=== PATIENT | male | born 1980 | race Caucasian/White ===

== ENCOUNTER 2018-06-29 15:29 | Emergency (ER) | payer OTHER ==
--- NOTE | 2018-06-29 16:46 | RAD REPORT ---
EXAM DESCRIPTION: CT - Head C Spine Cap Helen Taylor - 06/29/2018 4:28 pm CLINICAL HISTORY: Trauma, head and neck injury. Chest, abdomen and pelvis pain. PAIN COMPARISON: No comparisons TECHNIQUE: CT head without contrast. CT cervical spine without contrast with coronal and sagittal reformatted images. CT chest, abdomen and pelvis with IV contrast (approximately 100 mL nonionic IV contrast) with gibson l and sagittal reformatted images of the spine. All CT scans are performed using dose optimization technique as appropriate and may include automated exposure control or mA/KV adjustment according to patient size. FINDINGS: CT HEAD WITHOUT CONTRAST: No intracranial hemorrhage, hydrocephalus or extra-axial fluid collection. No areas of brain edema o r midline shift. The paranasal sinuses and mastoids are clear. The calvarium is intact. CT CERVICAL SPINE WITHOUT CONTRAST: No fracture or subluxation. The prevertebral soft tissues are normal in thickness. CT CHEST, ABDOMEN, PELVIS WITH CONTRAST: The lungs are clear.No pneumothorax or pericardial/pleural fluid. No evidence of intra-abdominal visceral injury, free fluid or free air. No concerning pelvic findings. No fractures. IMPRESSION: Negative for acute traumatic findings.
[2018-06-29 16:54] LABS: Absolute Lymphocytes (CBC) 1.8 K/uL (0.7-4.9); Absolute Monocytes 0.5 K/uL (0.1-1.3); Absolute Neutrophil 7.1 K/uL (1.8-8.0); Basophils % 0.5 % (0-1.3); Eosinophils % 2.1 % (0-4.4); Hematocrit 45.9 % (39.6-49.0); Lymphocytes % 18.3 % (15.3-44.8); MPV 9.4 fL (7.6-11.3); Monocytes % 5.4 % (3.3-12.3); RBC Red Blood Cell Count 5.84 M/uL (4.33-5.43)
[2018-06-29] MEDS ORDERED: METHOCARBAMOL 1,000 MG in NA CHLORIDE 0.9% 100 ML IV ONE (17:00)
[2018-06-29 17:06] LABS: Potassium 4.1 mmol/L (3.5-5.1)
--- NOTE | 2018-06-29 18:21 | EDPHYS ---
Physician Documentation [facility] Name: Vahid Ren Age: 37 yrs Sex: Male : 1980 Arrival Date: 06/29/2018 Time: 15:31 Bed 6 Private MD: ED Physician Edil Tejada HPI: 06/29 17:24 This 37 yrs old Male presents to ER via Wheelchair with complaints of Back kdr Injury - Inquicker. 17:24 The patient presents with pain that is acute, and decreased range of motion, and an kdr injury, and tenderness. The symptoms are located in the thoracic area, Broad chest pain. Onset: The symptoms/episode began/occurred suddenly, just prior to arrival, today, at 13:00. The pain does not radiate. Associated signs and symptoms: Pertinent positives: chest pain, nausea, weakness, SOB. The problem was sustained The patient became wedged between a forklift and a truck tailgate/fender. He stated that the taxi driver supervisor was attempting put some wooden pallets in the back of a truck when the patient was caught and he was jammed about three to four times. Once the taxi driver supervisor backed up, he fell to the ground but did not loose consciousness. He then had to take his kids home before he could come to the hospital. He states that while he was pinned, he couldn't breath and he felt like his spine was cracking. He still c/o generalized broad chest discomfort and difficult breathing. Historical: - Allergies: 16:05 No Known Allergies; ss - Home Meds: 16:05 None [Active]; ss - PMHx: 16:05 None; ss - PSHx: 16:05 None; ss - Immunization history: Last tetanus immunization: - up to date. - Social history:: Smoking status: Patient uses tobacco products, denies chronic smoking, but will smoke occasionally. - Ebola Screening: : Patient denies travel to an Ebola-affected area in the 21 days before illness onset. ROS: 17:29 Constitutional: Negative for fever, chills, and weight loss, Eyes: Negative for injury, kdr pain, redness, and discharge, ENT: Negative for injury, pain, and discharge, Neck: Negative for injury, pain, and swelling, Abdomen/GI: Negative for abdominal pain, nausea, vomiting, diarrhea, and constipation, Back: Negative for injury and pain, : Negative for injury, bleeding, discharge, and swelling, MS/Extremity: Negative for injury and deformity, Skin: Negative for injury, rash, and discoloration, Neuro: Negative for headache, weakness, numbness, tingling, and seizure activity. Psych: Negative for depression, anxiety, suicide ideation, homicidal ideation, and hallucinations, Allergy/Immunology: Negative for hives, rash, and allergies, Endocrine: Negative for neck swelling, polydipsia, polyuria, polyphagia, and marked weight changes, Hematologic/Lymphatic: Negative for swollen nodes, abnormal bleeding, and unusual bruising. 17:29 Cardiovascular: Positive for chest pain, with cough, with movement, of the chest, Negative for edema, orthopnea, palpitations, paroxysmal nocturnal dyspnea. 17:29 Respiratory: Positive for shortness of breath, Dyspnea. Exam: 17:29 Constitutional: This is a well developed, well nourished patient who is awake, alert, kdr and in no acute distress. Head/Face: Normocephalic, atraumatic. Eyes: Pupils equal round and reactive to light, extra-ocular motions intact. Lids and lashes normal. Conjunctiva and sclera are non-icteric and not injected. Cornea within normal limits. Periorbital areas with no swelling, redness, or edema. Neck: Trachea midline, no thyromegaly or masses palpated, and no cervical lymphadenopathy. Supple, full range of motion without nuchal rigidity, or vertebral point tenderness. No Meningismus. Cardiovascular: Regular rate and rhythm with a normal S1 and S2. No gallops, murmurs, or rubs. Normal PMI, no JVD. No pulse deficits. Abdomen/GI: Soft, non-tender, with normal bowel sounds. No distension or tympany. No guarding or rebound. No evidence of tenderness throughout. Back: No spinal tenderness. No costovertebral tenderness. Full range of motion. Skin: Warm, dry with normal turgor. Normal color with no rashes, no lesions, and no evidence of cellulitis. MS/ Extremity: Pulses equal, no cyanosis. Neurovascular intact. Full, normal range of motion. Neuro: Awake and alert, GCS 15, oriented to person, place, time, and situation. Cranial nerves II-XII grossly intact. Motor strength 5/5 in all extremities. Sensory grossly intact. Cerebellar exam normal. Normal gait. Psych: Awake, alert, with orientation to person, place and time. Behavior, mood, and affect are within normal limits. 17:29 Chest/axilla: Inspection: abrasion, is not appreciated, that is mild, of the mid-sternal area Palpation: tenderness, that is mild, of the anterior aspect of right upper chest, anterior aspect of left upper chest and mid-sternal area. 17:29 Respiratory: the patient does not display signs of respiratory distress, Respirations: shallow respirations, splinting, Breath sounds: are clear throughout. Vital Signs: 15:53 BP 141 / 95; Pulse 103; Resp 20; Temp 98.4; Pulse Ox 98% on R/A; Weight 90.72 kg (R); aj1 Height 5 ft. 8 in. (172.72 cm) (R); Pain 6/10; 16:44 BP 132 / 96; Pulse 94; Resp 12; Temp 98.5; Pulse Ox 98% ; sv 17:39 BP 122 / 91; Pulse 96; Resp 16; Pulse Ox 100% ; sv 15:53 Body Mass Index 30.41 (90.72 kg, 172.72 cm) aj1 [place] Coma Score: 16:04 Eye Response: spontaneous(4). Verbal Response: oriented(5). Motor Response: obeys ss commands(6). Total: 15. 16:44 Eye Response: spontaneous(4). Verbal Response: oriented(5). Motor Response: obeys sv commands(6). Total: 15. Trauma Score (Adult): 16:04 Eye Response: spontaneous(1); Verbal Response: oriented(1); Motor Response: obeys ss commands(2); Systolic BP: > 89 mm Hg(4); Respiratory Rate: 10 to 29 per min(4); [place] Score: 15; Trauma Score: 12 16:44 Eye Response: spontaneous(1); Verbal Response: oriented(1); Motor Response: obeys sv commands(2); Systolic BP: > 89 mm Hg(4); Respiratory Rate: 10 to 29 per min(4); [place] Score: 15; Trauma Score: 12 17:30 Eye Response: spontaneous(1); Verbal Response: oriented(1); Motor Response: obeys hb commands(2); Systolic BP: > 89 mm Hg(4); Respiratory Rate: 10 to 29 per min(4); [place] Score: 15; Trauma Score: 12 18:15 Eye Response: spontaneous(1); Verbal Response: oriented(1); Motor Response: obeys hb commands(2); Systolic BP: > 89 mm Hg(4); Respiratory Rate: 10 to 29 per min(4); [place] Score: 15; Trauma Score: 12 MDM: 16:01 Patient medically screened. [facility] 17:29 Data reviewed: vital signs, nurses notes, lab test result(s), radiologic studies. kdr Counseling: I had a detailed discussion with the patient and/or guardian regarding: the historical points, exam findings, and any diagnostic results supporting the discharge/admit diagnosis, lab results, radiology results, the need for outpatient follow up. 06/29 16:18 Order name: Basic Metabolic Panel; Complete Time: 17:17 kdr 06/29 16:18 Order name: CBC with Diff; Complete Time: 17:17 kdr 06/29 16:18 Order name: Creatinine for Radiology; Complete Time: 17:17 kdr 06/29 16:18 Order name: Type And Screen kdr 06/29 16:19 Order name: CT Traumagram (Head C Spine CAP W Con); Complete Time: 16:50 kdr 06/29 16:18 Order name: Labs collected and sent; Complete Time: 16:42 kdr Administered Medications: 17:24 Drug: [place] 10 mg-325 mg 1 tabs Route: PO; sv 18:31 Follow up: Response: No adverse reaction sv 17:24 Drug: Robaxin 1 grams Route: IVPB; Infused Over: 1 hrs; Site: left antecubital; sv 18:31 Follow up: Response: No adverse reaction; IV Status: Completed infusion; IV Intake: sv 100ml 17:24 Drug: Ibuprofen 800 mg Route: PO; sv 18:30 Follow up: Response: No adverse reaction sv Disposition: 06/29/18 18:20 Discharged to Home. Impression: Chest pain, unspecified, Crush injury to chest and back from forklift. - Condition is Stable. - Discharge Instructions: Chest Wall Pain, [id number], Back Pain, Adult, [id number]. - Prescriptions for Ibuprofen 800 mg Oral Tablet - take 1 tablet by ORAL route every 8 hours As needed take with food; 30 tablet. Robaxin 500 mg Oral Tablet - take 2 tablets by ORAL route every 6 hours As needed; 30 tablet. Tylenol- Codeine #3 300-30 mg Oral Tablet - take 2 tablets by ORAL route every 6 hours As needed; 16 tablet. - Medication Reconciliation Form, Thank You Letter, Prescription Opioid Use form. - Follow up: Private Physician; When: 2 - 3 days; Reason: If symptoms return, Further diagnostic work-up, Recheck today's complaints, Continuance of care, Re-evaluation by your physician. - Problem is new. - Symptoms have improved. Signatures: Dispatcher [employer] EDUyen Pickett RN RN sv Edil Tejada MD MD kdr Smirch, Shelby, RN RN ss Hola Awan PA PA jr8 Corrections: (The following items were deleted from the chart) 18:32 18:20 06/29/2018 18:20 Discharged to Home. Impression: Chest pain, unspecified; Crush sv injury to chest and back from forklift. Condition is Stable. Forms are Medication Reconciliation Form, Thank You Letter, Antibiotic Education, Prescription Opioid Use. Follow up: Private Physician; When: 2 - 3 days; Reason: If symptoms return, Further diagnostic work-up, Recheck today's complaints, Continuance of care, Re-evaluation by your physician. Problem is new. Symptoms have improved. kdr
--- NOTE | 2018-06-29 18:21 | ER ---
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 Reports that he felt a popping sensation when it happened, and now he has been having severe back pain, has been ambulatory at home, reports some numbness in his legs, chest pain, and neck pain. 15:50 Care prior to arrival: None. aj1 15:50 Acuity: AYESHA 2 aj1 15:50 Method Of Arrival: Wheelchair aj1 16:04 Trauma event details: Injury occurred in the [facility], Injury occurred: in an industrial place of business Injury occurred: June 29, 2018 Injury occurred at: 13:00. 16:05 Transition of care: patient was not received from another setting of care. Onset of symptoms was June 29, 2018 at 13:00. Risk Assessment: Do you want to hurt yourself or someone else? Patient reports no desire to harm self or others. Initial Sepsis Screen: Does the patient meet any 2 criteria? No. Patient's initial sepsis screen is negative. Does the patient have a suspected source of infection? No. Patient's initial sepsis screen is negative. 16:10 Mechanism of Injury: Crush injury from being trapped between forklift and truck sv Extrication was not required. Patient was trapped for unknown amount of time. Trauma Activation: Alert Physician: ED Physician; Name: Dr. Tejada; Notified At: 15:55; Arrived At: 15:55 Physician: General Surgeon; Name: ; Notified At: 15:55; Arrived At: Physician: Radiology; Name: Eulogio Steinberg; Notified At: 15:55; Arrived At: 15:56 Physician: Respiratory; Name: ; Notified At: 15:55; Arrived At: Physician: Lab; Name: ; Notified At: 15:55; Arrived At: Historical: - Allergies: 16:05 No Known Allergies; ss - Home Meds: 16:05 None [Active]; ss - PMHx: 16:05 None; ss - PSHx: 16:05 None; ss - Immunization history: Last tetanus immunization: - up to date. - Social history:: Smoking status: Patient uses tobacco products, denies chronic smoking, but will smoke occasionally. - Ebola Screening: : Patient denies travel to an Ebola-affected area in the 21 days before illness onset. Screenin:04 Abuse screen: Denies threats or abuse. Denies injuries from another. Tuberculosis ss screening: No symptoms or risk factors identified. 16:10 Nutritional screening: No deficits noted. Fall Risk None identified. sv Primary Survey: 16:04 NO uncontrolled hemorrhage observed. A: The patient is alert. Airway: patent. ss Breathing/Chest: Respiratory pattern: regular, Respiratory effort: spontaneous, unlabored, Breath sounds: clear. Circulation: Skin color: pink. Disability Alert. 16:10 Exposure/Environment: All clothing and personal items were removed. Forensic evidence sv collection is not deemed to be indicated at this time. Items placed in patient belonging bag. There is no evidence of uncontrolled external bleeding. No obvious injuries are noted at this time. 17:00 Reassessment Airway Airway Patent Breathing/Chest Respiratory pattern Regular Chest hb inspection Symmetrical Circulation Color [place] Disability Alert. 17:25 Reassessment Airway Airway Patent Oxygen No O2 Oral cavity Clear Trachea Midline sv Breathing/Chest Respiratory pattern Regular Respiratory effort Spontaneous Unlabored Chest inspection Symmetrical Circulation Heart tones Present Pulses Palpable Color [place] Temperature Warm Dry Disability Alert. 18:15 Reassessment Airway Airway Patent Breathing/Chest Respiratory pattern Regular hb Respiratory effort Spontaneous Unlabored Chest inspection Symmetrical Disability Alert. Secondary Survey: 16:10 HEENT: No deficits noted. Gastrointestinal: No deficits noted. : No deficits noted. sv No signs and/or symptoms were reported regarding the genitourinary system. Musculoskeletal: Reports numbness in right leg and left leg. Assessment: 16:06 Reassessment: Dr. Tejada at bedside. ss 16:10 General: Appears in no apparent distress. uncomfortable, well groomed, well developed, sv Behavior is calm, cooperative, appropriate for age. Pain: Complains of pain in back and chest Pain currently is 6 out of 10 on a pain scale. Pain began 4 hours ago. Neuro: Level of Consciousness is awake, alert, obeys commands, Oriented to person, place, time, situation, Moves all extremities. Full function Gait is steady, Speech is normal. Respiratory: Airway is patent Respiratory effort is even, unlabored, Respiratory pattern is regular, symmetrical. Derm: Skin is pink, warm \T\ dry. 17:00 Reassessment: Patient appears in no apparent distress at this time. No changes from hb previously documented assessment. Patient and/or family updated on plan of care and expected duration. Pain level reassessed. Patient is alert, oriented x 3, equal unlabored respirations, skin warm/dry/pink. 18:00 Reassessment: Patient appears in no apparent distress at this time. No changes from hb previously documented assessment. Patient and/or family updated on plan of care and expected duration. Pain level reassessed. Patient is alert, oriented x 3, equal unlabored respirations, skin warm/dry/pink. 18:31 Reassessment: Patient appears in no apparent distress at this time. No changes from sv previously documented assessment. Patient and/or family updated on plan of care and expected duration. Pain level reassessed. Patient is alert, oriented x 3, equal unlabored respirations, skin warm/dry/pink. Vital Signs: 15:53 BP 141 / 95; Pulse 103; Resp 20; Temp 98.4; Pulse Ox 98% on R/A; Weight 90.72 kg (R); aj1 Height 5 ft. 8 in. (172.72 cm) (R); Pain 6/10; 16:44 BP 132 / 96; Pulse 94; Resp 12; Temp 98.5; Pulse Ox 98% ; sv 17:39 BP 122 / 91; Pulse 96; Resp 16; Pulse Ox 100% ; sv 15:53 Body Mass Index 30.41 (90.72 kg, 172.72 cm) aj1 [place] Coma Score: 16:04 Eye Response: spontaneous(4). Verbal Response: oriented(5). Motor Response: obeys ss commands(6). Total: 15. 16:44 Eye Response: spontaneous(4). Verbal Response: oriented(5). Motor Response: obeys sv commands(6). Total: 15. Trauma Score (Adult): 16:04 Eye Response: spontaneous(1); Verbal Response: oriented(1); Motor Response: obeys ss commands(2); Systolic BP: > 89 mm Hg(4); Respiratory Rate: 10 to 29 per min(4); [place] Score: 15; Trauma Score: 12 16:44 Eye Response: spontaneous(1); Verbal Response: oriented(1); Motor Response: obeys sv commands(2); Systolic BP: > 89 mm Hg(4); Respiratory Rate: 10 to 29 per min(4); [place] Score: 15; Trauma Score: 12 17:30 Eye Response: spontaneous(1); Verbal Response: oriented(1); Motor Response: obeys hb commands(2); Systolic BP: > 89 mm Hg(4); Respiratory Rate: 10 to 29 per min(4); [place] Score: 15; Trauma Score: 12 18:15 Eye Response: spontaneous(1); Verbal Response: oriented(1); Motor Response: obeys hb commands(2); Systolic BP: > 89 mm Hg(4); Respiratory Rate: 10 to 29 per min(4); [place] Score: 15; Trauma Score: 12 ED Course: 15:31 Patient arrived in ED. as 15:53 Triage completed. aj1 16:01 Hola Awan PA is PHCP. jr8 16:01 Edil Tejada MD is Attending Physician. jr8 16:04 Patient has correct armband on for positive identification. Bed in low position. Call ss light in reach. Side rails up X 1. 16:04 Patient maintains SpO2 saturation greater than 95% on room air. ss 16:05 Arm band placed on Patient placed in an exam room. ss 16:10 Initial lab(s) drawn, by me, sent to lab. Inserted saline lock: 18 gauge in right sv antecubital area, using aseptic technique. Blood collected. Flushed right antecubital with 5 ml normal saline. 16:14 Uyen Solis, EDU is Primary Nurse. sv 16:[address] via stretcher. ls3 16:22 CT completed. Patient moved back from CT. ls3 16:28 CT Traumagram (Head C Spine CAP W Con) In Process Unspecified. EDMS 16:45 Thermoregulation: warm blanket given to patient. sv 18:31 No provider procedures requiring assistance completed. IV discontinued, intact, sv bleeding controlled, No redness/swelling at site. Pressure dressing applied. Administered Medications: 17:24 Drug: [place] 10 mg-325 mg 1 tabs Route: PO; sv 18:31 Follow up: Response: No adverse reaction sv 17:24 Drug: Robaxin 1 grams Route: IVPB; Infused Over: 1 hrs; Site: left antecubital; sv 18:31 Follow up: Response: No adverse reaction; IV Status: Completed infusion; IV Intake: sv 100ml 17:24 Drug: Ibuprofen 800 mg Route: PO; sv 18:30 Follow up: Response: No adverse reaction sv Intake: 16:00 PO: 0ml; Total: 0ml. sv 16:44 PO: 0ml; Total: 0ml. sv 18:31 IV: 100ml; Total: 100ml. sv Output: 16:00 Urine: 0ml; Total: 0ml. sv 16:44 Urine: 0ml; Total: 0ml. sv Outcome: 18:20 Discharge ordered by . kdr 18:31 Discharged to home ambulatory, with significant other. sv 18:31 Condition: stable 18:31 Discharge instructions given to patient, family, Instructed on discharge instructions, follow up and referral plans. no drinking with medication, no driving heavy equipment, medication usage, Demonstrated understanding of instructions, follow-up care, medications, Prescriptions given X 3. 18:32 Patient's length of stay in the Emergency Department was greater than 2 hours. due to sv discharge paperworkPatient's length of stay extended due to 18:32 Patient left the ED. sv Signatures: Dispatcher [employer] EDAK Traci Linda RN RN aj1 Uyen Solis RN RN sv Edil Tejada MD MD kdr Martinez, Amelia as Smirch, Shelby, RN RN ss Roszak, Josh, PA PA jr8 Johanny Fuentes RN RN hb Siler, Lynzie ls3 Corrections: (The following items were deleted from the chart) 15:53 15:50 Presenting complaint: aj1 aj1 16:07 15:50 Presenting complaint: Patient states: He went to [employer] to berry picker ss some pallets and someone on the fork lift didn't see him and rammed him into, pinning him in between the fork lift and his truck. Reports that he felt a popping sensation when it happened, and now he has been having severe back pain, but reports some numbness in his legs, chest pain, and neck pain. Presenting complaint: Patient states: He went to [employer] to berry picker some pallets and someone on the fork lift didn't see him and rammed him into, pinning him in between the fork lift and his truck. Reports that he felt a popping sensation when it happened, and now he has been having severe back pain, but reports some numbness in his legs, chest pain, and neck pain. aj1
== END 2018-06-29 18:32 | disposition home or self-care (01) ==
LOC: ER 15:29
DX: S28.0XXA Crushed chest, initial encounter (principal); S38.1XXA Crushing injury of abdomen, lower back, and pelvis, initial encounter; X58.XXXA Exposure to other specified factors, initial encounter; Y93.89 Activity, other specified; Y92.89 Other specified places as the place of occurrence of the external cause; Y99.8 Other external cause status; Z72.0 Tobacco use
CPT/HCPCS: 36415; 70450; 71260; 72125; 74177; 80048; 85025; 86850; 86900; 86901; 96365; 99285; J2800; Q9967